=== PATIENT | female | born 1970 | race African-American/Black ===

== ENCOUNTER 2022-07-08 18:23 | Inpatient (IN) | payer BC, OTHER ==
[~2022-07-08] VITALS: Ht 152.4 cm; Wt 90.7 kg
[2022-07-08] MEDS ORDERED: IOHEXOL-350 100 ML BOTTLE ONE (18:41)
[2022-07-08 19:01] LABS: BASOPHILS % 0.4 % (0.0-2.0); EOSINOPHILS % 2.5 % (0.0-5.0); HEMATOCRIT. 35.9 % (36.0-48.0); HEMOGLOBIN. 12.2 g/dL (12.0-16.0); LYMPHOCYTES % 28.7 % (20.0-50.0); MEAN CORPUSCULAR HEMOGLOBIN 33.5 pg (28.0-32.0); MEAN CORPUSCULAR VOLUME 98.1 fL (81.0-99.0); MEAN PLATELET VOLUME 9.5 fl (7.4-10.4); NEUTROPHILS % 60.4 % (40.0-76.0); PLATELET 215 x1000/uL (130-400); RED BLOOD CELL COUNT 3.66 mill/uL (4.2-5.4)
[2022-07-08 19:06] LABS: CHLORIDE 106 mEq/L (98-107)
[2022-07-08 20:09] LABS: ETHANOL BLOOD < 10 mg/dL
[2022-07-09 05:00] VITALS: BP 121/85
[2022-07-09] MEDS ORDERED: LEVO50TA MT (05:48)
[2022-07-09 08:00] VITALS: BP 119/76
[2022-07-09] MEDS ORDERED: ASPIRIN 81MG TABLET PO SCH (09:30)
[2022-07-09] MEDS ORDERED: LORAZEPAM 2MG/ML CPJ IV NR (09:30)
[2022-07-09] MEDS ORDERED: CLOPIDOGREL 75MG TABLET PO SCH (09:30)
[2022-07-09 12:00] VITALS: BP 145/59
[2022-07-09] MEDS ORDERED: ASPI-1160 PO (12:19)
[2022-07-09] MEDS ORDERED: CLOP-31 PO (12:19)
[2022-07-09] MEDS ORDERED: GADOTERATE MEGLUMINE 5 MMOL/10 ML VIAL IV ONE (13:44)
[2022-07-09] MEDS ORDERED: ATOR80TA MT (15:34)
[2022-07-09] MEDS ORDERED: AMLO5TAB4 MT (15:34)
[2022-07-09 16:00] VITALS: BP 146/100
[2022-07-09 16:27] VITALS: BP 130/86
[2022-07-09] MEDS ORDERED: ATORVASTATIN CALCIUM 40MG TABLET PO SCH (21:00)
== END 2022-07-09 17:05 | disposition home or self-care (01) | DRG 66 ==
LOC: ER 18:23 → EDBEDREQTM 19:08 → EDBEDREQ 19:08 → EDBEDREQSVC 19:08 → MICUSO 20:12 → 6EST 07-09 04:56
PROVIDERS: ADMIT Internal Medicine; ATTEND Internal Medicine
DX: I63.9 Cerebral infarction, unspecified (principal); R29.704 NIHSS score 4; I10 Essential (primary) hypertension; E05.90 Thyrotoxicosis, unspecified without thyrotoxic crisis or storm
CPT/HCPCS: 36415; 70496; 70498; 70553; 71045; 80053; 80061; 80320; 83036; 84443; 85025; 92610; 93005; 93306; 93970; 99285; A9577; C1893; J2060; Q9967; G0480